=== PATIENT | male | born 1995 | race Hispanic/Latino ===

== ENCOUNTER 2023-07-03 22:09 | Emergency (ER) | payer SELFPAY ==
[~2023-07-03] VITALS: Ht 167.6 cm; Wt 70.0 kg
[2023-07-04 00:46] LABS: BASO% 0.3 % (0-3); EOS% 1.1 % (0-8); HEMATOCRIT 45.8 % (39.0-50.0); HEMOGLOBIN 15.4 g/dl (14.0-18.0); IMMATURE GRANULOCYTES 0.2 % (0.0-5.0); LYMPH% 32.8 % (15-41); MEAN CELL VOLUME 87.4 fL CALC (80.0-100.0); MEAN CORPUSCULAR HGB 29.4 pG CALC (26.0-32.0); MEAN CORPUSCULAR HGB CONC 33.6 g/dL CAL (32.0-36.0); MONO% 4.8 % (2-13); NEUT# 6.22 thou/uL (1.82-7.42); NEUT% 60.8 % (42-76); RED BLOOD COUNT 5.24 mill/uL (4.70-6.10); RED CELL DISTRI WIDTH 12.4 % (11.5-15.5)
[2023-07-04 00:54] LABS: ALBUMIN 4.7 g/dL (3.2-5.0); ALKALINE PHOSPHATASE 123 u/l (38-126); ANION GAP 17 (6-22 (CALC)); BILIRUBIN, TOTAL 0.7 mg/dL (0.2-1.3); BUN 12 mg/dL (9-20); BUN/CREATININE RATIO 19 (12-20 (CALC)); CARBON DIOXIDE 23 mmol/l (22-30); CHLORIDE 105 mmol/l (95-108); CREATININE 0.6 mg/dL (0.7-1.3); GFR FOR AFR.AMER. > 60 ML/MIN (>=60 (CALC)); GFR OTHER RACES > 60 ML/MIN (>=60 (CALC)); POTASSIUM 4.2 mmol/l (3.5-5.1); SGOT/AST 41 u/l (17-59); SODIUM 140 mmol/l (137-146); TOTAL PROTEIN 8.1 g/dL (6.3-8.2)
[2023-07-04 01:07] LABS: ACT PARTIAL THROMBO TIME 24.5 SECONDS (20.0-32.5)
[2023-07-04 01:15] LABS: D-DIMER 0.17 mg/L (0.19-0.60)
[2023-07-04 02:46] VITALS: BP 151/84
== END 2023-07-04 03:07 | disposition home or self-care (01) | DRG 313 ==
LOC: ED 22:09
PROVIDERS: Family Medicine
DX: R07.9 Chest pain, unspecified (principal)